=== PATIENT | male | born 1980 | race Caucasian/White ===

== ENCOUNTER 2017-06-28 20:48 | Emergency (ER) | payer OTHER ==
[2017-06-28] MEDS ORDERED: LET GEL TOPICAL 1 EA SYR TP ONE (20:55)
[2017-06-28 20:59] VITALS: BP 102/75; PULSE 88; RESP 18; TEMP 98; O2SAT 96
--- NOTE | 2017-06-28 20:59 | EDPHY ---
H & P Stated Complaint: hand cut HPI/ROS: HPI CHIEF COMPLAINT: 2 cm left hand laceration HISTORY OF PRESENT ILLNESS: Patient 37-year-old male, otherwise healthy history of hypertension presents emergency room with left hand laceration. He sustained this while [place]. He sliced the palmar aspect left hand lateral aspect 2 cm. No neurovascular involvement. No arterial injury no nerve injury. No bony involvement. Full function full range of motion of the hand. Patient tells me his tetanus shot is up-to-date. Past Medical History: Denies medical history except for hypertension Past Surgical History: Denies surgical history Social History: Denies daily use drugs alcohol tobacco products. Family History: Noncontributory ROS REVIEW OF SYSTEMS: A comprehensive 10 point review of systems is otherwise negative aside from elements mentioned in the history of present illness. Exam Constitutional appears well nontoxic no acute distress good triage nursing summary reviewed, vital signs reviewed, awake/alert. Eyes normal conjunctivae and sclera, EOMI, PERRLA. HENT normal inspection, atraumatic, moist mucus membranes, no epistaxis, neck supple/ no meningismus, no raccoon eyes. Respiratory clear to auscultation bilaterally, normal breath sounds, no respiratory distress, no wheezing. Cardiovascular rate normal, regular rhythm, no murmur, no edema, distal pulses normal. Gastrointestinal soft, non-tender, no rebound, no guarding, normal bowel sounds, no distension, no pulsatile mass. Genitourinary no CVA tenderness. Musculoskeletal no midline vertebral tenderness, full range of motion, no calf swelling, no tenderness of extremities, no meningismus, good pulses, neurovascularly intact. Skin left palm left lateral aspect laceration present 2 cm, explored to the base. No foreign bodies visualized. pink, warm, & dry, no rash, skin atraumatic. Neurologic awake, alert and oriented x 3, AAOx3, moves all 4 extremities equally, motor intact, sensory intact, CN II-XII intact, normal cerebellar, normal vision, normal speech. Psychiatric normal mood/affect. Heme/Lymph/Immune no lymphadenopathy. Differential Diagnosis: Includes but is not limited to in a particular order left hand laceration, soft tissue injury Medical Decision Making: Plan for this patient laceration lead to be repaired sutures will need to be placed Re-evaluation: Laceration Repair Procedure: Verbal Consent was obtained, Under sterile conditions, The patient had lidocaine with epinephrine used approximately 3ccs to local anesthetize the left hand palmar 2cm hand Laceration. The wound was copiously irrigated with sterile fluid, the wound was explored for foreign bodies there were none visualized, the wound was explored with a sterile glove to the base. There are no deep structures involved, including no arterial injury. TWO 5.O PROELEne interrupted Sutures were placed in this patient's laceration. He had good close approximation of the wound edges. He Tolerated this well. Patient tolerated this well. Understands have sutures removed 12-14 days. Return precautions discussed watch for signs infection. Keep the wound clean, dry, protected and intact. Source: Patient - Personal History Current Tetanus Diphtheria and Acellular Pertussis (TDAP): Yes - Medical/Surgical History Hx Asthma: No Hx Chronic Respiratory Disease: No Hx Diabetes: No Hx Cardiac Disease: No Hx Renal Disease: No Hx Cirrhosis: No Hx Alcoholism: No Hx HIV/AIDS: No Hx Splenectomy or Spleen Trauma: No Other PMH: med hx-adhd. surg-lasik - Social History Smoking Status: Never smoked Constitutional: Initial Vital Signs Temperature (C) 36.6 C 06/28/17 20:51 Heart Rate 88 06/28/17 20:51 Respiratory Rate 18 06/28/17 20:51 Blood Pressure 102/75 06/28/17 20:51 O2 Sat (%) 96 06/28/17 20:51 O2 Delivery Mode Room Air Allergies/Adverse Reactions: No Known Allergies Allergy (Verified 10/25/15 20:56) Home Medications: Medication Instructions Recorded Adderall 10 MG (RX) 06/20/15 Departure - Departure Disposition: Home, Routine, Self-Care Clinical Impression: Laceration Condition: Good Instructions: Laceration (ED), Care For Your Stitches (ED) Additional Instructions: 1. Sutures removed in 12-14 days. 2. Keep her wound clean dry intact. 3. Watch for signs of infection. 4. Warm soapy water is fine. Referrals: Tori Hoffman PA [Primary Care Provider] - As per Instructions
== END 2017-06-28 21:17 | disposition home or self-care (01) ==
LOC: CED 20:48
PROC: 0HQGXZZ Repair Left Hand Skin, External Approach (ICD-10-PCS; principal; 2017-06-28)
DX: S61.412A Laceration without foreign body of left hand, initial encounter (principal); I10 Essential (primary) hypertension; W45.8XXA Other foreign body or object entering through skin, initial encounter